=== PATIENT | female | born 1955 | race Caucasian/White ===

== ENCOUNTER 2024-06-28 11:16 | Emergency (ER) | payer MEDICARE, OTHER, SELFPAY ==
[2024-06-28 11:42] VITALS: BP 112/69
[2024-06-28 12:01] LABS: % Basophils 0.3 % (0-2); % Immature Granulocytes 0.3 % (0-0.5); % Lymphocytes 9.3 % (20.5-51.1); % Monocytes 5.6 % (1.7-9.3); % Neutrophils 84.5 % (42.2-75.2); Absolute Lymphocytes 1.1 10^3/uL (1.2-3.4); Absolute Monocytes 0.7 10^3/uL (0.1-0.6); Absolute Neutrophils 10.2 10^3/uL (1.4-6.5); Hematocrit 41.5 % (37.0-47.0); Hemoglobin 14.4 g/dL (12.0-16.0); Mean Corp Hgb Conc. 34.7 g/dL (33.0-37.0); Mean Corpuscular Hgb 29.9 pg (27.0-31.0); Mean Corpuscular Volume 86.3 fL (81.0-99.0); Mean Platelet Volume 9.1 fL (7.4-10.4); Nucleated Red Blood Cells % 0 %; Platelet Count 260 10^3/uL (130-400); Red Blood Cell Count 4.81 10^6/uL (4.20-5.40)
[2024-06-28 12:16] LABS: ALT (SGPT) 25 U/L (0-35); AST (SGOT) 27 U/L (14-36); Albumin 4.1 g/dl (3.5-5.0); Alkaline Phosphatase 62 U/L (38-126); Blood Urea Nitrogen 11 mg/dl (7-17); Calcium 8.9 mg/dl (8.4-10.2); Carbon Dioxide 31 mmol/L (22-30); Chloride 93 mmol/L (98-107); Glucose 154 mg/dl (70-99); Sodium 132 mmol/L (135-145); Total Bilirubin 0.5 mg/dl (0.2-1.3); Total Protein 6.7 g/dl (6.3-8.2); eGFR > 60.00
[2024-06-28 12:27] LABS: COVID-19 Antigen Negative (Negative)
--- NOTE | 2024-06-28 14:26 | ED.GENMED ---
History of Present Illness
General
Chief Complaint: Cold/Flu/URI Symptoms
Source: patient and spouse
Exam Limitations: none
Time Seen by Provider: 06/28/24 13:52
Nursing documentation reviewed up to this point in time: agreed with
History of Present Illness
History of Present Illness:
Patient is a 68-year-old female with history atrial fibrillation on Eliquis, hypertension, hyperlipidemia, asthma presenting to the emergency department for flulike symptoms. Patient states that she became sick approximately 2 days ago with
headache, sore throat, nasal congestion, cough. Patient reports for chills although no known fever. Patient endorses a productive cough with yellow, green, and brown sputum. She does have a history of asthma and feels that she is having some
shortness of breath. Patient denies any true chest pain.
Patient was seen in urgent care facility this morning where they performed an EKG and swab her for flu. She was then referred to the emergency department for a chest x-ray to rule out a pneumonia.
Patient states she feels like she needs a nebulizer treatment although does not have any medication at home and cannot find her nebulizer.
Her family is sick at home with similar symptoms.
Review of Systems
Review of Systems
Allergies reviewed?: Yes
All Other Systems: ROS reviewed and negative except as documented in HPI and ROS
Phy Exam
Physical Exam
Physical Exam:
Vitals: Tachycardic on arrival, normalized by my assessment
General: Frequent cough, nontoxic appearing
Skin: Warm and dry, no rashes or lesions
Head: Normocephalic, atraumatic
Eyes: Sclera nonicteric. EOMs intact. No nystagmus.
Throat: Mild pharyngeal erythema, no tonsillar edema or exudates. Uvula midline. Protecting airway
Neck: Normal ROM, no cervical spine tenderness, no meningismus
Cardiac: Regular rate and rhythm, no murmurs.
Pulm: Normal respiratory effort. O2 saturation 95 on room air. Mild expiratory wheeze. Frequent cough.
Abdomen: No abdominal tenderness.
Extremities: No evidence of cyanosis or edema.
Neuro: AAOx3. Grossly intact.
Psychiatric: Normal affect.
Course
Orders/Labs/Results
Orders:
Orders
06/28/24 11:46
Electrocardiogram (*1) Urgent
Reason for Study: Shortness of Breath
EKG- Treatment ONCE
06/28/24 11:54
CMP [Comprehensive Metabolic Panel] Urgent
COVID-19 Antigen Urgent
Source: Nasal Swab
Complete Blood Count/With Diff Urgent
06/28/24 14:18
CR Chest - 2 Views Urgent
Comment:
Reason For Exam: cough
06/28/24 14:29
Acetaminophen [Tylenol] 650 mg PO NOW STA
Ipratropium/Albuterol Sulfate [Duoneb] 3 ml INH R NOW STA
Potassium Chloride 10% Elixir [KCl Elixir] 40 meq PO NOW STA
06/28/24 15:41
Prednisone [Deltasone] 40 mg PO NOW STA
Abnormal Lab Results
06/28/24
11:54
WBC 12.0 H 10^3/uL
(4.8-10.8)
Absolute Neuts (auto) 10.2 H 10^3/uL
(1.4-6.5)
Absolute Lymphs (auto) 1.1 L 10^3/uL
(1.2-3.4)
Absolute Monos (auto) 0.7 H 10^3/uL
(0.1-0.6)
Neutrophils % 84.5 H %
(42.2-75.2)
Lymphocytes % 9.3 L %
(20.5-51.1)
Sodium 132 L mmol/L
(135-145)
Potassium 3.0 L mmol/L
(3.5-5.1)
Chloride 93 L mmol/L
(98-107)
Carbon Dioxide 31 H mmol/L
(22-30)
Glucose 154 H mg/dl
(70-99)
06/28/24 11:54
06/28/24 11:54
Vital Signs
Initial and Last Documented VS:
Initial Vital Signs
Temp Pulse Resp BP Pulse Ox
98.0 F 116 18 112/69 95
06/28/24 11:42 06/28/24 11:42 06/28/24 11:42 06/28/24 11:42 06/28/24 11:42
Last Documented Vital Signs
Temp Pulse Resp BP Pulse Ox
98.0 F 94 16 122/81 98
06/28/24 11:42 06/28/24 16:00 06/28/24 16:00 06/28/24 16:00 06/28/24 16:00
MDM/Problems Addressed
Differential Diagnosis Includes:
Not limited to: Asthma exacerbation, bronchitis, pneumonia, etc.
MDM/Problems Addressed:
68-year-old female presenting with flulike symptoms for the past 2 days. Family with similar symptoms. No fever. Does have history of asthma and reports mild shortness of breath. Patient initially tachycardic on arrival although normalized on my
assessment. She is afebrile with otherwise stable vital signs. Oxygen saturation 95 on room air. On exam�patient is frequently coughing although no apparent respiratory distress. Very mild expiratory wheeze. Heart regular rate and rhythm. No
lower extremity edema. Labs were initiated in triage showing mild leukocytosis of 12. She was found to be mildly hypokalemic with a potassium of 3.0 which I suspect is likely secondary to GI losses she reports vomiting yesterday although has
improved. COVID swab negative. She did have a flu swab obtained at urgent care which was also reportedly negative. EKG shows normal sinus rhythm without any acute ischemic changes. Will obtain chest x-ray to rule out pneumonia. Will give DuoNeb
and Tylenol.
Update: Chest x-ray without any signs of pneumonia. Patient did have some improvement following nebulizer treatment. Suspect likely viral bronchitis with mild asthma exacerbation. Patient is afebrile. She is not tachypneic or hypoxic. Feel she
is stable for discharge with outpatient supportive care. No indication for antibiotic therapy at this time. Will initiate short course of steroids. Patient was discharged with nebulizer machine and prescription for nebulizing solution. She has
inhalers at home. Patient will follow close with primary care at home. Return precaution discussed at length. Patient stable for discharge. Case discussed with attending physician.
Chronic conditions affecting care:
Atrial fibrillation on Eliquis, asthma
Acute Exacerbation and/or Progression of Chronic Illness:
Acute asthma exacerbation
*Radiology
Radiology exam reviewed: preliminary read by ED provider (Reviewed by me-no opaclizeth) and radiology read reviewed
*Pulse Oximetry
Patient hypoxic: no
*EKG
Interpreted by ED Provider?: Yes
EKG Intrepretation Date: 06/28/24
Interpretation: abnormal
Comparison EKG: changes noted
Heart Rate: 82
Rate: normal
Rhythm: sinus
Dewey: normal axis
Interval: normal QT interval
QRS Pattern: normal QRS
Ischemia: non-specific ST changes
*Supervisor Continuous Weld Pipe Mill Interpretation
Rate: Supervisor Continuous Weld Pipe Mill- N/A
*Critical Care Note
Total Time (30-74mins, 75-104mins- exclusive of procedures): Not Applicable
Patient Management
Escalation/DeEscalation of care consider admission/obs:
Admit not indicated
ED Attending Note
-
Portions of this chart may have been created with voice recognition software.� Occasional wrong word or��sound alike� substitutions may have occurred due to the inherent limitations of voice recognition software.
Discharge Plan
Departure
Patient Disposition: Home (Routine Discharge)
Date of Disposition: 06/28/24
Time of Disposition: 15:43
Patient with high blood pressure during this ER visit?: No
Condition: Good
Covid-19: Negative COVID-19
Discharge Problem:
Acute bronchitis, Asthma exacerbation
Instructions: Acute Bronchitis, Adult (DC), Viral Upper Respiratory Infection, Adult (DC), Asthma in adults - Discharge instructions, BLOOD PRESSURE
Prescriptions:
New
potassium chloride 20 mEq tablet extended release
20 meq PO BID 7 Days Qty: 14 0RF
albuterol sulfate 2.5 mg /3 mL (0.083 %) solution for nebulization
2.5 mg inhalation Q4H PRN (Reason: shortness of breath or wheezing) Qty: 180 0RF
prednisone 20 mg tablet
40 mg PO DAILY 4 Days Qty: 8 0RF
No Action
Flovent Rotadisk 50 MCG blister with device
1 puff intranasal HS
cetirizine 10 MG tablet
10 mg PO HS
cyanocobalamin (vitamin B-12) 1,000 MCG tablet
1,000 mcg sublingual DAILY
aspirin 81 MG tablet,delayed release (DR/EC)
81 mg PO .QPM
nortriptyline 25 MG capsule
25 mg PO HS
pantoprazole 40 MG tablet,delayed release (DR/EC)
40 mg PO DAILY
Xolair 150 MG recon soln
300 mg SC .[id number]
Patient Comments:
RECEIVES IN OUTPATIENT INFUSION DEPARTMENT
budesonide-formoterol [Symbicort] 1 PUFF HFA aerosol inhaler
2 puff inhalation R BID
azelastine-fluticasone [Dymista] 23 GM spray,non-aerosol
1 gm SPRAY DAILY
Combivent Respimat 1 PUFF mist
2 puff inhalation DAILY PRN (Reason: wheezing)
docosahexaenoic acid-epa 1 CAP capsule
1 cap PO DAILY
cholecalciferol (vitamin D3) 2,000 UNITS tablet
2,000 units PO DAILY
oxcarbazepine 300 MG tablet
450 mg PO BID
atorvastatin 10 MG tablet
10 mg PO .M-F
Patient Comments:
Three times per week
amlodipine 5 MG tablet
5 mg PO DAILY
valsartan 80 MG tablet
80 mg PO DAILY
meclizine 25 MG tablet
25 mg PO Q4H PRN (Reason: vertigo)
Vit C/Vitamin D3/Herb No.313 [Synogesic Capsule] 1 EACH Capsule
1 ea PO TID
albuterol sulfate 2.5 mg/0.5 mL Solution For Nebulization
5 mg INHALATION Q4H PRN (Reason: sob)
glipizide 5 mg Tablet Extended Release 24hr
5 mg PO DAILY
Referrals:
PRIVATE,PHYSICIAN [Family Provider] -
Activity Restrictions/Additional Instructions:
RETURN TO THE EMERGENCY DEPARTMENT WITH ANY FEVERS, CHEST PAIN, SHORTNESS OF BREATH/DIFFICULTY BREATHING, COUGHING UP BLOOD, WORSENING IN CURRENT SYMPTOMS, OR ANY OTHER CONCERNS
-As discussed�your x-ray did not show any evidence of pneumonia today
-Your prescriptions have been sent to the pharmacy. Please take as directed. Continue to use your inhaler at home as needed. You were provided with a nebulizer machine and prescription for nebulizer solution which you should use at home.
-Continue to take Tylenol as needed for sore throat. It is very important stable hydrated and get plenty of rest.
-As discussed�follow-up closely with your primary care for further evaluation/management to ensure that symptoms are improving. Please ensure that your potassium levels are repeated to ensure trending upwards.
Monitor your symptoms closely return to the emergency department with any acute worsening/new symptoms or any other concerns
Interventions
Interventions:
*Risk Screen - Suicide Last Done: 06/28/24 11:42
*General Assessment Last Done: 06/28/24 11:42
*Neglect/Abuse Screening Last Done: 06/28/24 13:41
ED- Fall Risk Assessment Last Done: 06/28/24 14:19
*ED COVID-19 Vaccine History Last Done: 06/28/24 11:42
*Nursing Disposition Last Done: 06/28/24 16:03
ED- Pulmonary Assessment Last Done: 06/28/24 14:19
Discharge Date and Time
Discharge Date/Time: 06/28/24 16:04
Print Language: PORTUGUESE
[2024-06-28] MEDS: TYLENOL 650 MG PO (14:43)
[2024-06-28] MEDS: DUONEB 3 ML INH (14:44)
[2024-06-28] MEDS: KCL ELIXIR 40 MEQ PO (14:44)
[2024-06-28 15:01] VITALS: BP 131/86
[2024-06-28] MEDS: DELTASONE 40 MG PO (15:51)
[2024-06-28 16:00] VITALS: BP 122/81
== END 2024-06-28 16:04 | disposition home or self-care (01) ==
LOC: EMR 11:16
PROVIDERS: Emergency Medicine; EMERGENCY PHYSICIAN Emergency Medicine
DX: J20.9 Acute bronchitis, unspecified (principal); J45.901 Unspecified asthma with (acute) exacerbation; E87.6 Hypokalemia; I48.91 Unspecified atrial fibrillation; Z79.01 Long term (current) use of anticoagulants; I10 Essential (primary) hypertension; E78.5 Hyperlipidemia, unspecified
CPT/HCPCS: 94640; 99283; 71046; 80053; 85025; 87811; 93005

== ENCOUNTER 2024-07-01 01:00 | Inpatient (IN) | payer MEDICARE, OTHER, SELFPAY ==
[2024-06-30 16:53] VITALS: BP 146/64
[2024-06-30 16:56] LABS: Glucose - Point of Care 353 mg/dl (70-99)
--- NOTE | 2024-06-30 17:01 | EDRN ---
Pt agreeable to having bloodwork, EKG and CXR. Refusing covid/flu swabs and UA at this time.
[2024-06-30 17:18] LABS: % Basophils 0.2 % (0-2); % Immature Granulocytes 0.3 % (0-0.5); % Monocytes 2.5 % (1.7-9.3); Absolute Lymphocytes 0.4 10^3/uL (1.2-3.4); Absolute Monocytes 0.3 10^3/uL (0.1-0.6); Absolute Neutrophils 9.5 10^3/uL (1.4-6.5); Hematocrit 37.2 % (37.0-47.0); Mean Corp Hgb Conc. 34.9 g/dL (33.0-37.0); Mean Corpuscular Hgb 29.3 pg (27.0-31.0); Mean Platelet Volume 9.3 fL (7.4-10.4); Nucleated Red Blood Cells % 0 %; Platelet Count 216 10^3/uL (130-400); Red Blood Cell Count 4.43 10^6/uL (4.20-5.40); Red Cell Dist. Width 13.2 % (11.5-14.5); White Blood Cell Count 10.2 10^3/uL (4.8-10.8)
[2024-06-30 17:30] LABS: ALT (SGPT) 41 U/L (0-35); AST (SGOT) 53 U/L (14-36); Albumin 3.8 g/dl (3.5-5.0); Alkaline Phosphatase 66 U/L (38-126); Blood Urea Nitrogen 15 mg/dl (7-17); Calcium 8.9 mg/dl (8.4-10.2); Carbon Dioxide 25 mmol/L (22-30); Chloride 95 mmol/L (98-107); Glucose 348 mg/dl (70-99); Potassium 3.6 mmol/L (3.5-5.1); Sodium 132 mmol/L (135-145); Total Bilirubin 0.4 mg/dl (0.2-1.3); Total Protein 6.4 g/dl (6.3-8.2); eGFR > 60.00
[2024-06-30 17:41] LABS: Troponin I < 0.012 ng/ml
--- NOTE | 2024-06-30 20:47 | ED.GENMED ---
History of Present Illness
General
Chief Complaint: Blood Sugar Problem
Source: patient
Exam Limitations: none
Time Seen by Provider: 06/30/24 20:18
History of Present Illness
History of Present Illness:
This is a 68 year old female that comes in with c/o cough and elevated blood sugar. States that she was here 2 days ago with a cough and told that she has Bronchitis. States that she gets very sick due to her asthma. Patient was given Prednisone and
Albuterol nebulizers. States that she was also given Potassium liquid here and a pills for home but she was unable to take them. States that her throat was sore. States that she is not feeling any better. States that she checked her sugar today and
it was 412. However, patient is using Mounjaro and she did not take this on Tuesday. States that she took this tonight. States that she did vomit for 2 days. States that she had diarrhea yesterday and today. States that she took Imodium once and
this did not help. States that she has had low grade fever with chill today, SOB, cough nausea, diarrhea, headache. Denies any chest pain, abd pain, vomting, dizziness, urinary burning.
Past History
Past History
ED Past Medical History: Arrthythmia (Atrial fib), Asthma, GERD, HTN, Hypercholesterolemia, IDDM, Seizures and Other (Dizzines, Vertigo, Ulcers, Esophageal spasm, cataracts, )
ED Past Surgical History: Orthopedic (Cervical fusion) and Tonsilectomy
Social History
Tobacco: Former smoker
Alcohol: Occasional
Personal:
Living: with family
Review of Systems
Review of Systems
All Other Systems: ROS reviewed and negative except as documented in HPI and ROS
Constitutional: Reports fever (Low grade) and chills
EENT: Reports no symptoms
Respiratory: Reports cough and trouble breathing
Cardiac: Reports no symptoms; Denies chest pain
ABD/GI: Reports nausea, vomiting (for 2 days but this has stopped) and diarrhea; Denies abdominal pain
: Denies dysuria, frequency or urgency
Musculoskeletal: Reports no symptoms
Skin: Reports no symptoms
Neurological: Reports headache; Denies dizzy
Psychiatric: Reports no symptoms
Phy Exam
General Physical Exam
General Presentation: no apparent distress
General age: appears stated age
General Skin: warm and dry
General Habitus: elderly
General Mental: alert
General Hydration: dry mucous membranes
ENT Exam
ENT Exam: TM's normal, pharynx normal and neck supple
Eye Exam
Eye Exam: EOMI
Cardiovascular Exam
Cardiovascular Exam: regular rate/rhythm, no edema, no murmur and normal peripheral pulses
Pulmonary Exam
Pulmonary Exam: no respiratory distress, chest non tender and other (Rales at bases, Dry cough noted, Occasional wheezing noted)
Gastrointestinal Exam
Gastrointestinal Exam: normal bowel sounds, non tender, soft, no organomegaly, no pulsatile mass and non distended
Musculoskeletal Exam
Musculoskeletal Exam: full ROM and no edema
Skin Exam
Skin Exam: normal color, warm/dry, no rash and no petechia
Psychiatric Exam
Psychiatric Exam: normal mood/affect
Course
Orders/Labs/Results
Orders:
Orders
06/30/24 16:57
Electrocardiogram (*1) Urgent
Reason for Study: Other
Other Reason for Exam: Respiratory Distress
EKG- Treatment ONCE
CR Chest - 2 Views Urgent
Comment:
Reason For Exam: respiratory distress
06/30/24 17:12
Complete Blood Count/With Diff Urgent
Comprehensive Metabolic Panel Urgent
Troponin I Urgent
06/30/24 20:46
0.9% Sodium Chloride 1000 ml [Nss] 1,000 ml IV BOLUS
Ipratropium/Albuterol Sulfate [Duoneb] 3 ml INH R NOW ONE
06/30/24 20:50
COVID-19 Antigen Urgent
Source: Nasal Swab
Influenza A+B Rapid Molecular Urgent
RADHA Source: Nasal Swab
Specimen Description:
Abnormal Lab Results
06/30/24 06/30/24
16:54 17:12
Absolute Neuts (auto) 9.5 H 10^3/uL
(1.4-6.5)
Absolute Lymphs (auto) 0.4 L 10^3/uL
(1.2-3.4)
Neutrophils % 93.0 H %
(42.2-75.2)
Lymphocytes % 4.0 L %
(20.5-51.1)
Sodium 132 L mmol/L
(135-145)
Chloride 95 L mmol/L
(98-107)
Creatinine 0.5 L mg/dL
(0.6-1.0)
Glucose 348 H mg/dl
(70-99)
AST 53 H U/L
(14-36)
ALT 41 H U/L
(0-35)
POC Glucose 353 H mg/dl
(70-99)
06/30/24 17:12
06/30/24 17:12
Sodium slightly low. Chloride low. Hyperglycemia, AST/ALT elevation. Troponin <0.012, COVId negative, Influenza A positive.
Vital Signs
Initial and Last Documented VS:
Initial Vital Signs
Temp Pulse Resp BP Pulse Ox
97.8 F 84 20 146/64 98
06/30/24 16:53 06/30/24 16:53 06/30/24 16:53 06/30/24 16:53 06/30/24 16:53
Last Documented Vital Signs
Temp Pulse Resp BP Pulse Ox
97.8 F 71 20 140/65 94
06/30/24 16:53 06/30/24 20:59 06/30/24 16:53 06/30/24 21:00 06/30/24 21:15
MDM/Problems Addressed
Differential Diagnosis Includes:
PNA, Asthma exacerbation,
MDM/Problems Addressed:
This is a 68 year old female that comes in with c/o cough and elevated blood sugar. States that she was here 2 days ago with a cough and was told that she has Bronchitis. Patient was given Steroids and Albuterol nebulizer. States that she had not
checked her sugar and not taken her Mounjaro. Patient checked her sugar today and it was elevated at 412 so she took her Mounjaro before coming.
Will check labs, chest x-ray, Give IV fluids and neb treatment.
back into see patient. Patient is very SOB with movement. Lung continue with rales at bases. Patient states that after the duo neb she felt like she was able to get some mucous up. Patient states that she is still feeling SOB. Wsill admit patient.
Hositalist notified.
Chronic conditions affecting care: Asthma
Acute Exacerbation and/or Progression of Chronic Illness: Asthma
*Pulse Oximetry
Patient hypoxic: no
*EKG
Interpreted by ED Provider?: Yes
Heart Rate: 82
Rate: normal
Rhythm: sinus
Micro: normal axis
Interval: normal interval
QRS Pattern: normal QRS
Ischemia: no ischemia
*Marketing Information Analyst Interpretation
Rate: Marketing Information Analyst- N/A
*Critical Care Note
Total Time (30-74mins, 75-104mins- exclusive of procedures): Not Applicable
ED Attending Note
-
Portions of this chart may have been created with voice recognition software.� Occasional wrong word or��sound alike� substitutions may have occurred due to the inherent limitations of voice recognition software.
Discharge Plan
Departure
Patient Disposition: Admit
Date of Disposition: 06/30/24
Time of Disposition: 22:53
Admit to: Med/Surg
Presentation/result/management discussed w/ accepting MD/DO: Hospitalist
Patient with high blood pressure during this ER visit?: Yes
Condition: Good
Covid-19: Negative COVID-19
Discharge Problem:
Influenza A, Asthma exacerbation, Shortness of breath
Prescriptions:
No Action
Flovent Rotadisk 50 MCG blister with device
1 puff intranasal HS
cetirizine 10 MG tablet
10 mg PO HS
cyanocobalamin (vitamin B-12) 1,000 MCG tablet
1,000 mcg sublingual DAILY
aspirin 81 MG tablet,delayed release (DR/EC)
81 mg PO .QPM
nortriptyline 25 MG capsule
25 mg PO HS
pantoprazole 40 MG tablet,delayed release (DR/EC)
40 mg PO DAILY
Xolair 150 MG recon soln
300 mg SC .[id number]
Patient Comments:
RECEIVES IN OUTPATIENT INFUSION DEPARTMENT
budesonide-formoterol [Symbicort] 1 PUFF HFA aerosol inhaler
2 puff inhalation R BID
azelastine-fluticasone [Dymista] 23 GM spray,non-aerosol
1 gm SPRAY DAILY
Combivent Respimat 1 PUFF mist
2 puff inhalation DAILY PRN (Reason: wheezing)
docosahexaenoic acid-epa 1 CAP capsule
1 cap PO DAILY
cholecalciferol (vitamin D3) 2,000 UNITS tablet
2,000 units PO DAILY
oxcarbazepine 300 MG tablet
450 mg PO BID
atorvastatin 10 MG tablet
10 mg PO .M-F
Patient Comments:
Three times per week
amlodipine 5 MG tablet
5 mg PO DAILY
valsartan 80 MG tablet
80 mg PO DAILY
meclizine 25 MG tablet
25 mg PO Q4H PRN (Reason: vertigo)
Vit C/Vitamin D3/Herb No.313 [Synogesic Capsule] 1 EACH Capsule
1 ea PO TID
albuterol sulfate 2.5 mg/0.5 mL Solution For Nebulization
5 mg INHALATION Q4H PRN (Reason: sob)
glipizide 5 mg Tablet Extended Release 24hr
5 mg PO DAILY
potassium chloride 20 mEq tablet extended release
20 meq PO BID 7 Days Qty: 14 0RF
albuterol sulfate 2.5 mg /3 mL (0.083 %) solution for nebulization
2.5 mg inhalation Q4H PRN (Reason: shortness of breath or wheezing) Qty: 180 0RF
prednisone 20 mg tablet
40 mg PO DAILY 4 Days Qty: 8 0RF
Referrals:
Hernando Culp MD [Family Provider] -
Interventions
Interventions:
*Risk Screen - Suicide Last Done: 06/30/24 16:53
*General Assessment Last Done: 06/30/24 20:59
*Neglect/Abuse Screening Last Done: 06/30/24 16:53
*ED COVID-19 Vaccine History Last Done: 06/30/24 20:59
ED- Neurological Assessment Last Done: 06/30/24 20:59
Discharge Date and Time
Print Language: FRISIAN
[2024-06-30 20:59] VITALS: BP 136/68
[2024-06-30 21:00] VITALS: BP 140/65
[2024-06-30] MEDS: NSS 1000 IV (21:02)
[2024-06-30] MEDS: DUONEB 3 ML INH (21:02)
[2024-06-30 21:25] LABS: COVID-19 Antigen Negative (Negative)
[2024-06-30 21:33] VITALS: BP 112/92
[2024-06-30 22:00] VITALS: BP 138/63
[2024-06-30 23:00] VITALS: BP 143/63
[2024-07-01] VITALS: BP 161/75
--- NOTE | 2024-07-01 00:01 | HPS.HSE ---
Family Physician
-
Family Physician: Hernando Culp
Chief Complaint
-
Cough / SOB
History of Present Illness
Patient is a 68y F with PMH significant for asthma and seizure disorder who presents to ED complaining of cough and SOB x several days. Patient states that symptoms began on 06/26. Her entire family has been ill with similar symptoms to varying
degrees. Patient was seen here at the ED on 06/28 for similar complaints. She was started on steroid taper at that time for asthma exacerbation. Patient had COVID testing here which was negative. She had had influenza testing at Urgent Care
prior to coming to the ED and this was reportedly negative.
Patient states that her cough and SOB have steadily increased over the past 2 days. She has cough that is productive of yellow-green mucus. She has severe dyspnea with even minimal activity.
Patient also notes that her blood sugars at home have been running very high since beginning the steroids.
Medical History
Past Medical History
Past Medical History: Reports Other
Additional Past Medical History:
Seizure Disorder / Temporal Lobe Epilepsy
Asthma
DM-II
Paroxysmal Atrial Fibrillation
Hypertension
Past Surgical History: Reports Other
Additional Past Surgical History:
Cervical Laminectomy / Fusion
Cataracts
Social History
Tobacco: Former Smoker (Quit smoking 50 years ago.)
Alcohol: Occasional
Drug: None
Personal:
Living: With Family
Family History
Family History: Not pertinent
Allergies / Home Medications
Allergies reflects when Allergies were last updated in [facility].
Home Medications with original date entered in [facility]
Allergy/Medication List:
Allergies
Allergy/AdvReac Type Severity Reaction Status Date / Time
carisoprodol [From Soma] Allergy Hives Verified 06/30/24 16:56
codeine Allergy Nausea / Verified 06/30/24 16:56
Vomiting
Home Medications
cyanocobalamin (vitamin B-12) 1,000 mcg tablet 5,000 mcg sublingual DAILY 07/06/18
azelastine 137 mcg-fluticasone 50 mcg/spray nasal spray (Dymista) 1 gm SPRAY DAILY 10/27/18
cholecalciferol (vitamin D3) 50 mcg (2,000 unit) tablet 2,000 units PO DAILY 10/27/18
docosahexaenoic acid (dha)-epa 120 mg-180 mg capsule 1 cap PO DAILY 10/27/18
ipratropium 20 mcg-albuterol 100 mcg/actuation mist for inhalation (Combivent Respimat) 2 puff inhalation DAILY PRN wheezing 10/27/18
oxcarbazepine 300 mg tablet 450 mg PO BID 11/22/18
atorvastatin 10 mg tablet 10 mg PO DAILY 04/25/19
albuterol sulfate 2.5 mg/0.5 mL solution for nebulization 5 mg inhalation Q4H PRN sob 01/18/22
albuterol sulfate 2.5 mg/3 mL (0.083 %) solution for nebulization 2.5 mg (3 mL) inhalation Q4H PRN shortness of breath or wheezing #180 mL 06/28/24
apixaban 5 mg tablet (Eliquis) 5 mg PO BID 06/30/24
fluticasone fur. 100 mcg-umeclid 62.5 mcg-vilant 25 mcg inhalat.powder (Trelegy Ellipta) 1 inh inhalation DAILY 06/30/24
fluticasone propionate 50 mcg/actuation nasal spray,suspension 2 spray intranasal DAILY 06/30/24
levalbuterol tartrate 45 mcg/actuation aerosol inhaler (Xopenex HFA) 2 inh inhalation Q6H 06/30/24
metoprolol succinate 25 mg tablet,extended release 24 hr 25 mg PO BID 06/30/24
montelukast 10 mg tablet 10 mg PO HS 06/30/24
multivitamin 1 tab PO DAILY 06/30/24
omeprazole 40 mg capsule,delayed release 40 mg PO DAILY 06/30/24
tezepelumab-ekko 210 mg/1.91 mL (110 mg/mL) subcutaneous pen injector (Tezspire) 210 mg SC Q4W 06/30/24
tirzepatide 10 mg/0.5 mL subcutaneous pen injector (Mounjaro) 10 mg SC QWEEK 06/30/24
valsartan 320 mg tablet 320 mg PO DAILY 06/30/24
Review of Systems
-
History Source: Patient
A 12 point ROS was completed and negative except as noted: Yes
Constitutional: Reports Fever, Fatigue and Chills
EENT: Denies Sore Throat
Respiratory: Reports Cough and Trouble Breathing
Cardiac: Denies Chest Pain or Palpitations
Abdomen/GI: Reports Nausea, Vomiting and Diarrhea; Denies Abdominal Pain
: Denies Dysuria, Frequency or Flank Pain
Musculoskeletal: Denies Joint Pain or Edema
Neurological: Reports Headache; Denies Dizzy
Psych: Denies Depression or Anxiety
Physical Exam
Vital Signs
Vital Signs
Temp Pulse Resp BP Pulse Ox
97.8 F 71 20 143/63 96
06/30/24 16:53 06/30/24 20:59 06/30/24 16:53 06/30/24 23:00 06/30/24 23:30
Physical Exam
General: Other (68y F in mild distress due to cough / dyspnea.)
HEENT: Moist mucous membranes and PERRLA
Respiratory: Other (Paroxysms of cough with deep breathing. Few scattered wheezes.)
Cardiac: S1/S2 and Tachycardia; No Murmur
GI: Soft, Non Tender, Non Distended and Normal Bowel Sounds
Musculoskeletal: No Clubbing, No Cyanosis and No Edema
Neuro: AO x 3
Laboratory Results
-
06/30/24 17:12
06/30/24 17:12
Laboratory Results
Total Bilirubin 0.4 mg/dl (0.2-1.3) 06/30/24 17:12
AST 53 U/L (14-36) H 06/30/24 17:12
ALT 41 U/L (0-35) H 06/30/24 17:12
Alkaline Phosphatase 66 U/L (38-126) 06/30/24 17:12
Troponin I < 0.012 ng/ml 06/30/24 17:12
Impression/Plan
-
A/P: Patient is a 68y F with PMH significant for seizure disorder and asthma who presents to ED complaining of cough and SOB.
Influenza A
Asthma with Acute Exacerbation secondary to the above
- Admit for further evaluation and treatment.
- Begin Tamiflu. Change steroids to IV for now.
- Albuterol MDI.
- O2 support as needed.
- Follow for clinical improvement.
- Follow proper precautions.
DM-II with Hyperglycemia
Pseudohyponatremia
- No elevated anion gap / evidence for DKA.
- Adjust insulin therapy while on steroids for asthma as noted above.
- Follow glucose and cover with SSI as needed.
- Update A1C.
Seizure Disorder
- Stable. Continue current AEDs regimen with no changes.
- Monitor for any breakthrough seizures.
Paroxysmal Atrial Fibrillation
- Stable. Continue current CV med regimen including Eliquis for stroke risk reduction.
Benign Hypertension
- Stable. Continue current meds and adjust as needed.
DVT Prophylaxis: On Eliquis
Code Status: Full
[2024-07-01 00:17] VITALS: BMI 31.8
[2024-07-01] MEDS: TAMIFLU 75 MG PO ×2 (00:32→08:23)
[2024-07-01 01:28] VITALS: BP 167/84; BMI 28.5
[2024-07-01] MEDS: ELIQUIS PO (02:33)
[2024-07-01] MEDS: TESSALON PERLES 200 MG PO (02:39)
[2024-07-01] MEDS: TRILEPTAL PO (02:51)
--- NOTE | 2024-07-01 04:11 | PTCARENOTE ---
07/01/2024 - PT admitted to room 2139 from ED @ approx. 01:30. PT transferred from stretcher to bed independently. PT oriented to room, call dickerson, plan of care discussed. PT AAOX3 and participates fully in admission questions. Tele monitor #[id number]
placed on and reading SP in the 90's. Assessment as documented.
[2024-07-01 07:22] LABS: Glucose - Point of Care 82 mg/dl (70-99)
[2024-07-01 07:35] VITALS: BP 162/83
[2024-07-01 07:45] LABS: Hematocrit 33.8 % (37.0-47.0); Hemoglobin 11.7 g/dL (12.0-16.0); Mean Corp Hgb Conc. 34.6 g/dL (33.0-37.0); Mean Corpuscular Hgb 29.8 pg (27.0-31.0); Mean Corpuscular Volume 86.2 fL (81.0-99.0); Mean Platelet Volume 10.1 fL (7.4-10.4); Platelet Count 204 10^3/uL (130-400); Red Blood Cell Count 3.92 10^6/uL (4.20-5.40); Red Cell Dist. Width 13.2 % (11.5-14.5); White Blood Cell Count 8.3 10^3/uL (4.8-10.8)
[2024-07-01] MEDS: LIPITOR 10 MG PO (08:14)
[2024-07-01] MEDS: PROTONIX 40 MG PO (08:14)
[2024-07-01] MEDS: ELIQUIS 5 MG PO (08:14)
[2024-07-01] MEDS: TOPROL XL 25 MG PO (08:14)
[2024-07-01] MEDS: TRILEPTAL 450 MG PO (08:15)
[2024-07-01] MEDS: DIOVAN 320 MG PO (08:23)
[2024-07-01] MEDS: VIBRAMYCIN 100 MG PO (08:23)
--- NOTE | 2024-07-01 08:25 | W.PN.HOSP.TC ---
Today's Communication/Plan
-
monitor O2, possible d/c later
Assessment / Plan
Assessment / Plan
68yo F with PMHx of seizure d/o, afib on ELiquis, DM type 2, HLD, HT, persistent severe Asthma came with elevated blood glucose since she was started on Prednisone for SOB. Found Influenza A. 5 days into symptoms. Not hypoxic, chestXR without
pneumonia, no significant wheezing on exam
A/P:
#Hyperglycemia with DM type 2 with unspecified complications
2/2 steroids - with absent wheezing and no hypoxia - reasonable to stop and continue with usual inhales steroids. ALso with Influenza - oral steroids should be avoided unless absolutely indicated (increasing mortality)
Insulin SS, Accuchecks, DM diet
#Influenza A
Tamiflu
#Severe Persistent Asthma unclear if in exacerbation, most likely bronchitis with influenza
cont Trelogy
Cont Albuterol q4h PRN, add fluticazone q4h PRN
Not hypoxic
Mucinex
Doxy for antiinflammatory properties
#Afib, unspecified
#Essential HTN
#HLD
#B12 deficiency
#GERD
#SEizure d/o
cont home meds
Seizure precautions
DVT ppx on Eliquis
Full code
I have spent at least 58min reviewing chart, test results, communication with consultants and direct patient care
Anticipated Discharge: Within 24 hours
Subjective/Interval History
-
Date of Service: July 01, 2024
Objective Data
-
Labs:
Laboratory Results
07/01/24
06:51
WBC 8.3
Hgb 11.7 L
Hct 33.8 L
Plt Count 204
Sodium Pending
Potassium Pending
Chloride Pending
Carbon Dioxide Pending
BUN Pending
Creatinine Pending
Glucose Pending
Calcium Pending
Vital Signs:
Vital Signs
Temp Pulse Resp BP Pulse Ox
98.6 F 89 15 167/84 96
07/01/24 01:28 07/01/24 01:28 07/01/24 01:07/01/24 01:07/01/24 03:01
Review of Systems
-
History Source: Patient
All other systems: Reviewed and negative
Physical Exam
-
General: No Apparent Distress
HEENT: Normocephalic, Atraumatic and Moist Mucous Membranes
Respiratory: Chest Tubes (mucus gross crackles heard); Negative Wheezes or Crackles
Cardiac: Regular Rhythm; Negative Murmur
GI: Soft, Nontender and Nondistended
Musculoskeletal: No Clubbing, No Cyanosis and No Edema
Skin: Warm
Neuro: Awake, Alert, Oriented and AO x 3
Psych: Calm
[2024-07-01] MEDS: SYMBICORT 80/4.5 MCG INHALER 2 PUFF INH (08:29)
[2024-07-01] MEDS: SPIRIVA RESPIMAT 2.5 MCG 2 PUFF INH (08:29)
[2024-07-01] MEDS: ProAIR HFA INHALER 2 PUFF INH ×2 (08:30→13:52)
[2024-07-01] MEDS: MUCINEX 600 MG PO (08:33)
[2024-07-01 08:34] LABS: Blood Urea Nitrogen 7 mg/dl (7-17); Calcium 8.6 mg/dl (8.4-10.2); Carbon Dioxide 30 mmol/L (22-30); Chloride 97 mmol/L (98-107); Estimated Creatinine Clearance 100 ml/min; Glucose 82 mg/dl (70-99); Sodium 135 mmol/L (135-145); eGFR > 60.00
[2024-07-01 09:03] LABS: Procalcitonin < 0.05 ng/ml (0.0-0.25)
[2024-07-01] MEDS: KCL 40 MEQ PO (09:11)
[2024-07-01 09:17] LABS: Magnesium 1.3 mg/dl (1.6-2.3)
[2024-07-01 09:26] LABS: NT-proBNP 484 pg/ml
[2024-07-01] MEDS: MAGNESIUM SULFATE 50 IV (10:56)
[2024-07-01 11:15] VITALS: BP 143/69
[2024-07-01 11:36] LABS: Glycohemoglobin (HgbA1c) 6.9 % (4.0-5.6)
[2024-07-01 11:59] LABS: Glucose - Point of Care 91 mg/dl (70-99)
--- NOTE | 2024-07-01 13:38 | W.DCSUMMARY ---
Discharge Summary
Discharge Data
Date of Admission: 07/01/24
Date of Discharge: 07/01/24
-
Pending Results: No
Hospital Course
68yo F with PMHx of seizure d/o, afib on ELiquis, DM type 2, HLD, HT, persistent severe Asthma came with elevated blood glucose since she was started on Prednisone for SOB. Found Influenza A. 5 days into symptoms. Not hypoxic, chestXR without
pneumonia, no significant wheezing on exam, reasonable to d/c on her usual inhalers - patient comfortable and agreeable with d/c home. Blood glucose in acceptable range. Strict DM diet advised
I have spent at least 58min reviewing chart, test results, communication with consultants and direct patient care
Patient was managed for:
#Hyperglycemia with DM type 2 with unspecified complications
#Influenza A
#Severe Persistent Asthma unclear if in exacerbation, most likely bronchitis with influenza
#Afib, unspecified
#Essential HTN
#HLD
#B12 deficiency
#GERD
#SEizure d/o
Discharge Plan
-
Patient Disposition: Home (Routine Discharge)
Discharge Diagnosis/Procedures: Influenza A
Diet: Diabetic, Carb Controlled
Activity: As tolerated
Driving Restrictions: As prior to admission
Referrals:
Hernando Culp MD [Family Provider] -
Prescriptions:
New
doxycycline hyclate 100 mg Capsule
100 mg PO Q12 Qty: 13 0RF
oseltamivir 75 mg Capsule
75 mg PO BID Qty: 9 0RF
guaifenesin 600 mg Tablet Extended Release 12hr
600 mg PO Q12 Qty: 60 0RF
Continued
cyanocobalamin (vitamin B-12) 1,000 MCG tablet
5,000 mcg sublingual DAILY
azelastine-fluticasone [Dymista] 23 GM spray,non-aerosol
1 gm SPRAY DAILY
Combivent Respimat 1 PUFF mist
2 puff inhalation DAILY PRN (Reason: wheezing)
docosahexaenoic acid-epa 1 CAP capsule
1 cap PO DAILY
cholecalciferol (vitamin D3) 2,000 UNITS tablet
2,000 units PO DAILY
oxcarbazepine 300 MG tablet
450 mg PO BID
atorvastatin 10 MG tablet
10 mg PO DAILY
Patient Comments:
Three times per week
albuterol sulfate 2.5 mg/0.5 mL Solution For Nebulization
5 mg INHALATION Q4H PRN (Reason: sob)
albuterol sulfate 2.5 mg /3 mL (0.083 %) solution for nebulization
2.5 mg inhalation Q4H PRN (Reason: shortness of breath or wheezing) Qty: 180 0RF
multivitamin Tablet
1 tab PO DAILY
omeprazole 40 mg Capsule,Delayed Release(Dr/Ec)
40 mg PO DAILY
valsartan 320 mg Tablet
320 mg PO DAILY
montelukast 10 mg Tablet
10 mg PO HS
metoprolol succinate 25 mg Tablet Extended Release 24 Hr
25 mg PO BID
fluticasone propionate 50 mcg/actuation Maben,Suspension
2 spray INTRANASAL DAILY
levalbuterol tartrate [Xopenex HFA] 45 mcg/actuation Hfa Aerosol Inhaler
2 inh INHALATION Q6H
Eliquis 5 mg Tablet
5 mg PO BID
Trelegy Ellipta 100-62.5-25 mcg Blister With Device
1 inh INHALATION DAILY
Mounjaro 10 mg/0.5 mL Pen Injector
10 mg SC QWEEK
Tezspire 210 mg/1.91 mL (110 mg/mL) Pen Injector
210 mg SC Q4W
Discharge Orders:
Discharge Patient (As Directed); Ordered 07/01/24
Ordered By: Deejay Sullivan
Discharge Date and Time
Print Language: [place]
--- NOTE | 2024-07-01 14:28 | CM ---
Reviewed the chart notes and spoke with the patient and her spouse at the bedside. IMM reviewed. The patient is being discharged to home today. Patient resides with spouse in a first floor condo, no steps to enter. The patient reports no
DME/VN/SNF. The patient confirmed her pharmacy of choice is the [facility]. The patient's spouse will provide transportation home. CM continues to be available to patient/family and is monitoring medical plan for needs at discharge.
Plan: Discharge to home today. No needs identified at this time.
== END 2024-07-01 16:03 | disposition home or self-care (01) | DRG 194 ==
LOC: 2 NORTH 01:00
PROVIDERS: Clinical Nurse Specialist Family Health; Emergency Medicine; ADMITTING PHYSICIAN Hospitalist; ATTENDING PHYSICIAN Internal Medicine; EMERGENCY PHYSICIAN Emergency Medicine; FAMILY PHYSICIAN Internal Medicine
DX: J10.1 Influenza due to other identified influenza virus with other respiratory manifestations (principal); J45.51 Severe persistent asthma with (acute) exacerbation; E11.65 Type 2 diabetes mellitus with hyperglycemia; J40 Bronchitis, not specified as acute or chronic; I48.0 Paroxysmal atrial fibrillation; I10 Essential (primary) hypertension; E78.00 Pure hypercholesterolemia, unspecified; E53.8 Deficiency of other specified B group vitamins; K21.9 Gastro-esophageal reflux disease without esophagitis; G40.909 Epilepsy, unspecified, not intractable, without status epilepticus; Z79.899 Other long term (current) drug therapy; Z79.01 Long term (current) use of anticoagulants; Z87.891 Personal history of nicotine dependence; Z11.52 Encounter for screening for COVID-19; Z79.4 Long term (current) use of insulin
CPT/HCPCS: 71046; 80048; 80053; 82962; 83036; 83735; 83880; 84145; 84484; 85025; 85027; 87502; 87811; 93005; 94640; 99285

== ENCOUNTER → 2025-03-29 13:06 | Outpatient (REF) | payer MEDICARE, OTHER, SELFPAY | LOC: WDC 13:06 | PROVIDERS: ATTENDING PHYSICIAN Obstetrics & Gynecology | DX: R10.2 Pelvic and perineal pain (principal); Z12.31 Encounter for screening mammogram for malignant neoplasm of breast | CPT/HCPCS: 76830; 76856; 77063; 77067 ==